=== PATIENT | male | born 1995 | race Caucasian/White ===

== ENCOUNTER 2024-10-15 09:29 | Inpatient (IN) | payer MEDICAID ==
[~2024-10-15] VITALS: Ht 175.3 cm; Wt 95.5 kg
[2024-10-15 10:12] LABS: PLATELET COUNT (AUTO) 237 K/uL (150-450); RED BLOOD CELL COUNT(AUTO) 4.28 MIL/uL (4.50-5.90); RED CELL DISTRIBUTION WIDTH 12.5 % (11.5-14.5); WHITE BLOOD COUNT (AUTO) 5.7 K/uL (4.5-11.0)
[2024-10-15 10:18] LABS: CALCIUM, TOTAL 9.2 mg/dL (8.8-10.5); CREATININE 0.87 mg/dL (0.60-1.30); GLOMERULAR FILTR. RATE CALC > 60 mL/min (>60); GLUCOSE,RANDOM 100 mg/dL (70-110); SODIUM SERUM 141 mmol/L (136-145); UREA NITROGEN, BLOOD 16 mg/dL (7-18)
[2024-10-15 10:23] LABS: ASPARTATE AMINOTRANSFERASE 14 U/L (15-37); TOTAL PROTEIN, SERUM 7.4 g/dL (6.4-8.2)
[2024-10-15 10:54] LABS: ALCOHOL, BLOOD (SERUM) < 3 mg/dL (0-10)
[2024-10-15 10:57] LABS: COVID AG,FIA SOURCE NASAL SWAB
[2024-10-15] MEDS: ACETYLCYSTEINE IV ONE (11:11)
[2024-10-15] MEDS: WATER IV ONE (11:11)
[2024-10-15] MEDS: DEXTROSE 5% IV ONE (11:11)
[2024-10-15] MEDS: ONDANSETRON HCL 4 MG/2 ML VIAL IVP ONE (11:16)
[2024-10-15 11:38] LABS: SARS-COV2 (COVID) ANTIGEN,FIA Negative (Negative)
[2024-10-15] MEDS ORDERED: BISACODYL 10 MG RECTAL RECTAL SUPPOSITORY PR PRN (13:45)
[2024-10-15] MEDS ORDERED: MAGNESIUM HYDROXIDE SUSPENSION 30 ML UDCUP PO PRN (13:45)
[2024-10-15] MEDS ORDERED: IPRATROPIUM BROMIDE 0.5 MG/2.5 ML NEB SOLUTION NEB PRN (13:45)
[2024-10-15] MEDS ORDERED: ALBUTEROL SULFATE 2.5 MG/0.5 ML NEB SOLUTION NEB PRN (13:45)
[2024-10-15] MEDS ORDERED: ZOLPIDEM TARTRATE 5 MG TABLET PO PRN (13:45)
[2024-10-15] MEDS: HEPARIN SODIUM,PORCINE 5,000 UNITS/ML VIAL SQ SCH (15:19)
[2024-10-15 17:02] VITALS: BP 102/56; PULSE 95; RESP 18; TEMP 99.7; O2SAT 100
[2024-10-15 17:21] LABS: APPEARANCE,URINE CLEAR (CLEAR); GLUCOSE, URINE (UA) TRACE mg/dL (NEGATIVE); LEUKOCYTE ESTERASE ,URINE SMALL (NEGATIVE); NITRATE,URINE NEGATIVE (NEGATIVE); OCCULT BLOOD,URINE NEGATIVE (NEGATIVE); PH,URINE DRUG SCREEN 6.5 (5.0-8.0); SPECIFIC GRAVITIY, URINE 1.049 (1.003-1.030)
[2024-10-15 17:27] LABS: ALCOHOL, URINE DRUG SCREEN NEGATIVE (NEGATIVE); AMPHET/METH SCREEN,URINE NEGATIVE (NEGATIVE); BARBITURATE SCREEN, URINE NEGATIVE (NEGATIVE); CANNABINOID SCREEN,URINE POSITIVE (NEGATIVE); COCAINE SCREEN,URINE NEGATIVE (NEGATIVE); METHADONE SCREEN, URINE NEGATIVE (NEGATIVE)
[2024-10-15 18:07] VITALS: BP 108/72; PULSE 79; RESP 18; TEMP 98.2; O2SAT 100
[2024-10-15 18:07] LABS: SQUAMOUS EPITHELIAL CELL,UR Few /LPF (None Seen)
[2024-10-15 19:07] VITALS: BP 111/70; PULSE 74; RESP 18; TEMP 98.6; O2SAT 99
[2024-10-16 05:58] VITALS: BP 107/64; PULSE 74; RESP 18; TEMP 98.2; O2SAT 100
[2024-10-16] MEDS: PANTOPRAZOLE SODIUM 40 MG DR TABLET PO SCH (07:50)
[2024-10-16 08:01] VITALS: BP 98/62; PULSE 82; RESP 20; TEMP 98.6; O2SAT 99
[2024-10-16] MEDS: ONDANSETRON HCL 4 MG/2 ML VIAL IVP PRN (12:02)
[2024-10-16] MEDS: SERTRALINE HCL 50 MG TABLET PO SCH (16:19)
[2024-10-16 16:30] VITALS: BP 112/68; PULSE 79; RESP 20; TEMP 98.2; O2SAT 100
[2024-10-16 20:50] VITALS: BP 110/71; PULSE 76; RESP 18; TEMP 98.2; O2SAT 98
[2024-10-17 05:35] VITALS: BP 122/69; PULSE 85; RESP 18; TEMP 97.9; O2SAT 100
[2024-10-17 07:05] VITALS: BP 110/66; PULSE 85; RESP 18; TEMP 98.4; O2SAT 100
[2024-10-17] MEDS ORDERED: SODIUM CHLORIDE 0.9% 500 ML IV ONE (10:00)
[2024-10-17] MEDS: CefTRIAXone 1 GM/DEXTROSE 50 ML IV SCH (10:51)
[2024-10-17 12:24] LABS: ASPARTATE AMINOTRANSFERASE 14 U/L (15-37); CALCIUM, TOTAL 9.1 mg/dL (8.8-10.5); CREATININE 0.91 mg/dL (0.60-1.30); GLOMERULAR FILTR. RATE CALC > 60 mL/min (>60); GLUCOSE,RANDOM 83 mg/dL (70-110); SODIUM SERUM 143 mmol/L (136-145); TOTAL PROTEIN, SERUM 7.3 g/dL (6.4-8.2); UREA NITROGEN, BLOOD 12 mg/dL (7-18)
[2024-10-17 16:20] VITALS: BP 106/63; PULSE 75; RESP 18; TEMP 97.9; O2SAT 98
[2024-10-17] MEDS ORDERED: SERT-439 PO (16:42)
== END 2024-10-17 17:45 | disposition home or self-care (01) | DRG 817 ==
LOC: EMS 09:31 → EDH 13:36 → 6S 16:25 → 4E 17:20
PROVIDERS: ADMIT Hospitalist; ATTEND Hospitalist
DX: T39.1X2A Poisoning by 4-Aminophenol derivatives, intentional self-harm, initial encounter (principal); R45.851 Suicidal ideations; F33.2 Major depressive disorder, recurrent severe without psychotic features; Z20.822 Contact with and (suspected) exposure to COVID-19; F12.10 Cannabis abuse, uncomplicated; Z79.899 Other long term (current) drug therapy; Y92.89 Other specified places as the place of occurrence of the external cause; N39.0 Urinary tract infection, site not specified
CPT/HCPCS: 71045; 80048; 80053; 80076; 80307; 81001; 85025; 87086; 93005; 96365; 96375; 99285; G0378; G0480; G0481; J0132; J0696; J1644; J2405; J7040; J7060; 36415-L1; 36415-TC